=== PATIENT | male | born 1965 | race American Indian/Alaskan Native ===

== ENCOUNTER 2016-07-15 20:12 | Emergency (ER) | payer MEDICAID ==
[2016-07-15 20:13] VITALS: BMI 35.9
[2016-07-15 21:01] VITALS: BP 107/104; O2SAT 98
[2016-07-15 21:14] LABS: URINE BILIRUBIN NEGATIVE (NEGATIVE); URINE BLOOD SMALL (NEGATIVE); URINE GLUCOSE (UA) NEGATIVE (NEGATIVE); URINE KETONE NEGATIVE (NEGATIVE); URINE LEUKOCYTE ESTERASE NEGATIVE Leu/uL (NEGATIVE); URINE PROTEIN NEGATIVE mg/dL (<30 mg/dL); URINE UROBILINOGEN 0.2 E.U./dL (<1 E.U./dL)
[2016-07-15 21:22] LABS: URINE APPEARANCE CLEAR (CLEAR); URINE COLOR LIGHT YELLOW (YELLOW)
[2016-07-15 21:31] LABS: URINE BACTERIA TRACE (NEG); URINE EPITHELIAL CELLS 0 - 2 /hpf (0-5); URINE RBC 0 - 2 /hpf (0-2); URINE WBC 0 - 2 /hpf (0-6)
--- NOTE | 2016-07-15 23:02 | US ---
EXAM: US Scrotum CLINICAL HISTORY: 51 years old, male; Pain; Scrotum pain; Additional info: Left pain TECHNIQUE: Real-time ultrasound of the scrotum with color Doppler and image documentation. COMPARISON: No relevant prior studies available. FINDINGS: Right testicle: 4.5 x 2.1 x 2.6 cm. No mass. No torsion. Left testicle: 4.3 x 1.8 x 4.0 cm. No mass. No torsion. Epididymides: Unremarkable as visualized. Symmetric appearance. Scrotum: Bilateral hydrocele with evidence of complexity. IMPRESSION: Bilateral hydrocele with evidence of complexity. Correlate clinically.
[2016-07-15] MEDS ORDERED: Oxycodone/Acetaminophen 5/325 mg Tab PO STA (23:04)
--- NOTE | 2016-07-15 23:04 | US ---
EXAM: US Retroperitoneal Limited, Renal CLINICAL HISTORY: 51 years old, male; Pain; Other: Backpain; Additional info: Back pain TECHNIQUE: Real-time ultrasound of the retroperitoneum (limited) with image documentation. COMPARISON: CT - ABD PELVIS W/O PO OR IV CONT 11/05/2015 10:45:54 PM FINDINGS: Right kidney: 12.3 cm. No stones or mass imaged by ultrasound criteria. No hydronephrosis. Left kidney: 10.5 cm. No stones or mass image by ultrasound criteria. No hydronephrosis. IMPRESSION: No acute sonographic abnormality. Correlate clinically. Followup as warranted.
[2016-07-15 23:09] VITALS: PULSE 80; RESP 16; TEMP 98
--- NOTE | 2016-07-15 23:26 | ED PDOC ---
Arrival/HPI - General Chief Complaint: Male Genitourinary Time Seen by Provider: 07/15/16 20:33 Historian: Patient - History of Present Illness Narrative History of Present Illness (Text): 07/15/16 23:21 Candido Coburn is a 51 year old male, with a history of hypertension, presents to the emergency department for evaluation of 4 day duration of right testicular pain. Patient was evaluated by PMD earlier today for these symptoms, and was advised to present to emergency department for a testicular ultrasound. Denies any swelling, or redness. Denies fever, chills, chest pain, difficulty breathing , nausea, vomiting, diarrhea, urinary symptoms or any other complaints at this time. PMD:Dr. Matthews. Time/Duration: < week (4 days ) Symptom Onset: Gradual Symptom Course: Unchanged Severity Level: Mild Activities at Onset: Light Past Medical History - Provider Review Nursing Documentation Reviewed: Yes - Infectious Disease Hx of Infectious Diseases: None - Tetanus Immunization Tetanus Immunization: Unknown - Cardiac Hx Hypertension: Yes - Pulmonary Hx Respiratory Disorders: No - Neurological Hx Neurological Disorder: No - HEENT Hx HEENT Disorder: No - Renal Hx Renal Disorder: No - Endocrine/Metabolic Hx Endocrine Disorders: No - Hematological/Oncological Hx Blood Disorders: No - Integumentary Hx Dermatological Disorder: No - Musculoskeletal/Rheumatological Hx Musculoskeletal Disorders: No - Gastrointestinal Hx Gastrointestinal Disorders: No - Genitourinary/Gynecological Hx Genitourinary Disorders: No - Psychiatric Hx Depression: No Hx Emotional Abuse: No Hx Physical Abuse: No Hx Substance Use: No - Surgical History Other/Comment: lower back surgery last year. - Anesthesia Hx Anesthesia: No Hx Anesthesia Reactions: No Hx Malignant Hyperthermia: No - Suicidal Assessment Feels Threatened In Home Enviroment: No Family/Social History - Physician Review Nursing Documentation Reviewed: Yes Family/Social History: No Known Family HX Smoking Status: Never Smoked Hx Alcohol Use: No Hx Substance Use: No Hx Substance Use Treatment: No Allergies/Home Meds Allergies/Adverse Reactions: Allergies seafood Allergy (Uncoded 11/05/15 18:38) ANAPHYLAXIS Home Medications: Home Meds Medication Instructions Recorded Confirmed Labetalol [Trandate] 100 mg PO BID 11/05/15 11/05/15 Review of Systems - Physician Review All systems were reviewed & negative as marked: Yes - Review of Systems Constitutional: Normal. absent: Fatigue, Fevers Respiratory: Normal. absent: SOB, Cough, Sputum Cardiovascular: Normal. absent: Chest Pain Gastrointestinal: Normal. absent: Abdominal Pain, Diarrhea, Nausea, Vomiting Genitourinary Male: Other (right testicular pain ) Neurological: Normal. absent: Headache, Dizziness Psychiatric: Normal Physical Exam Vital Signs Reviewed: Yes Vital Signs Temp Pulse Resp BP Pulse Ox 07/15/16 23:34 80 16 98 07/15/16 23:09 98.0 F 80 16 98 07/15/16 21:00 97.7 F 76 19 107/104 H 98 Temperature: Afebrile Blood Pressure: Hypertensive Pulse: Regular Respiratory Rate: Normal Appearance: Positive for: Well-Appearing, Non-Toxic, Comfortable Pain Distress: None Mental Status: Positive for: Alert and Oriented X 3 - Systems Exam Head: Present: Atraumatic, Normocephalic Pupils: Present: PERRL Conjunctiva: Present: Normal Respiratory/Chest: Present: Clear to Auscultation, Good Air Exchange. No: Respiratory Distress, Accessory Muscle Use Cardiovascular: Present: Regular Rate and Rhythm, Normal S1, S2. No: Murmurs Abdomen: Present: Normal Bowel Sounds. No: Tenderness, Distention, Peritoneal Signs Genitourinary Male: No: Testicle Tenderness, Masses, Erythema, Hernias, Testicle Swelling Upper Extremity: Present: Normal Inspection. No: Cyanosis, Edema Lower Extremity: Present: Normal Inspection. No: Edema Neurological: Present: GCS=15, CN II-XII Intact, Speech Normal Skin: Present: Warm, Dry, Normal Color. No: Rashes Psychiatric: Present: Alert, Oriented x 3, Normal Insight, Normal Concentration Medical Decision Making ED Course and Treatment: 07/15/16 23:30 Impression: a 51 year old male who presents to the emergency department for evaluation of testicular pain 4 days. Sent by PMD for an ultrasound. Plan: -- Percocet -- Renal US -- Testes US -- Urinalysis Progress Notes: 07/15/16 23:31 EXAM: US Scrotum FINDINGS: Right testicle: 4.5 x 2.1 x 2.6 cm. No mass. No torsion. Left testicle: 4.3 x 1.8 x 4.0 cm. No mass. No torsion. Epididymides: Unremarkable as visualized. Symmetric appearance. Scrotum: Bilateral hydrocele with evidence of complexity. IMPRESSION: Bilateral hydrocele with evidence of complexity. Correlate clinically EXAM: US Retroperitoneal Limited, Renal FINDINGS: Right kidney: 12.3 cm. No stones or mass imaged by ultrasound criteria. No hydronephrosis. Left kidney: 10.5 cm. No stones or mass image by ultrasound criteria. No hydronephrosis. IMPRESSION: No acute sonographic abnormality. Correlate clinically. Followup as warranted. On reevaluation patient states that pain has improved markedly. I have discussed the results and plan with the patient, who expresses understanding. Patient given the opportunity to ask question, all questions were answered and there is agreement with the plan to discharge the patient home. Patient is stable for discharge. Patient was instructed to follow up with physician/clinic in 1-2 days or return if symptoms persist/worsen or new concerning symptoms arise. - Lab Interpretations Lab Results: Lab Results 07/15/16 21:00: Urine Color Light yellow, Urine Appearance Clear, Urine pH 6.0, Ur Specific Mcleod 1.010, Urine Protein Negative, Urine Glucose (UA) Negative, Urine Ketones Negative, Urine Blood Small H, Urine Nitrate Negative, Urine Bilirubin Negative, Urine Urobilinogen 0.2, Ur Leukocyte Esterase Negative, Urine RBC 0 - 2, Urine WBC 0 - 2, Ur Epithelial Cells 0 - 2, Urine Bacteria Trace - RAD Interpretation Radiology Orders: 07/15/16 20:59 TESTES DUPLEX COMPLETE [US] Stat 07/15/16 21:33 RENAL [US] Stat Outside Sales: Radiologist - Medication Orders Current Medication Orders: Discontinued Medications Oxycodone/Acetaminophen (Percocet 5/325 Mg Tab) 1 tab PO STAT STA Stop: 07/15/16 23:05 Last Admin: 07/15/16 23:12 Dose: 1 TAB - Scribe Statement The provider has reviewed the documentation as recorded by the Sienna Gutierrez Provider Attestation: All medical record entries made by the Sienna were at my direction and personally dictated by me. I have reviewed the chart and agree that the record accurately reflects my personal performance of the history, physical exam, medical decision making, and the department course for this patient. I have also personally directed, reviewed, and agree with the discharge instructions and disposition. Disposition/Present on Arrival - Present on Arrival Any Indicators Present on Arrival: No History of DVT/PE: No History of Uncontrolled Diabetes: No Urinary Catheter: No History of Decub. Ulcer: No History Surgical Site Infection Following: None - Disposition Have Diagnosis and Disposition been Completed?: Yes Diagnosis: Hydrocele in adult Disposition: HOME/ ROUTINE Disposition Time: 23:35 Condition: GOOD Discharge Instructions (ExitCare): Hydrocele (ED) Additional Instructions: follow up with your urologist Referrals: Benny Botello MD [Staff Provider] - Follow up with primary Arianne Armas APN [Primary Care Provider] - Follow up with primary
== END 2016-07-15 23:34 | disposition home or self-care (01) ==
LOC: ED 20:12
DX: N43.3 Hydrocele, unspecified (principal)

== ENCOUNTER 2018-02-10 19:52 | Emergency (ER) | payer BC, MEDICARE ==
[2018-02-10 20:16] VITALS: BMI 36.6
[2018-02-10 20:20] VITALS: TEMP 98.2
--- NOTE | 2018-02-10 20:34 | ED PDOC ---
Arrival/HPI - General Chief Complaint: Shortness Of Breath Time Seen by Provider: 02/10/18 20:04 Historian: Patient - History of Present Illness Narrative History of Present Illness (Text): 02/10/18 20:34 Candido Coburn is a 52 year old male, whose past medical history includes hypertension, who presents to the Emergency department complaining of throat irritation/tightness since waking up at 15:30 today. Patient states he has a s eafood allergy, but denies any recent exposure to seafood. Patient denies any shortness of breath, wheezing, facial swelling, rash, chest pain, abdominal pain, vomiting, or any other complaints. Symptom Onset: Gradual Symptom Course: Unchanged Activities at Onset: Light Context: Home Past Medical History - Provider Review Nursing Documentation Reviewed: Yes - Infectious Disease Hx of Infectious Diseases: None - Tetanus Immunization Tetanus Immunization: Unknown - Cardiac Hx Hypertension: Yes - Pulmonary Hx Respiratory Disorders: No - Neurological Hx Neurological Disorder: No - HEENT Hx HEENT Disorder: No - Renal Hx Renal Disorder: No - Endocrine/Metabolic Hx Endocrine Disorders: No - Hematological/Oncological Hx Blood Disorders: No - Integumentary Hx Dermatological Disorder: No - Musculoskeletal/Rheumatological Hx Musculoskeletal Disorders: No - Gastrointestinal Hx Gastrointestinal Disorders: No - Genitourinary/Gynecological Hx Genitourinary Disorders: No - Psychiatric Hx Depression: No Hx Emotional Abuse: No Hx Physical Abuse: No Hx Substance Use: No - Surgical History Other/Comment: lower back surgery last year. - Anesthesia Hx Anesthesia: No Hx Anesthesia Reactions: No Hx Malignant Hyperthermia: No - Suicidal Assessment Feels Threatened In Home Enviroment: No Family/Social History - Physician Review Nursing Documentation Reviewed: Yes Family/Social History: Unknown Family HX Smoking Status: Never Smoked Hx Alcohol Use: No Hx Substance Use: No Hx Substance Use Treatment: No Allergies/Home Meds Allergies/Adverse Reactions: Allergies shellfish derived Allergy (Verified 02/10/18 20:04) ANAPHYLAXIS seafood Allergy (Uncoded 11/05/15 18:38) ANAPHYLAXIS Home Medications: Home Meds Medication Instructions Recorded Confirmed Labetalol [Trandate] 100 mg PO BID 11/05/15 02/10/18 Review of Systems - Physician Review All systems were reviewed & negative as marked: Yes - Review of Systems Constitutional: Normal. absent: Fevers Eyes: Normal ENT: Sore Throat (+throat irritation/tightness) Respiratory: Normal. absent: SOB, Cough Cardiovascular: Normal. absent: Chest Pain Gastrointestinal: Normal. absent: Abdominal Pain, Diarrhea, Nausea, Vomiting Genitourinary Male: Normal. absent: Dysuria, Frequency, Hematuria, Urinary Output Changes Musculoskeletal: Normal. absent: Back Pain, Neck Pain Skin: Normal. absent: Rash Neurological: Normal. absent: Headache, Dizziness Endocrine: Normal Hemo/Lymphatic: Normal Psychiatric: Normal Physical Exam Vital Signs Reviewed: Yes Vital Signs Temp Pulse Resp BP Pulse Ox 02/10/18 20:16 98.2 F 77 18 147/90 98 Temperature: Afebrile Blood Pressure: Normal Pulse: Regular Respiratory Rate: Normal Appearance: Positive for: Well-Appearing, Non-Toxic, Comfortable Pain Distress: None Mental Status: Positive for: Alert and Oriented X 3 - Systems Exam Head: Present: Atraumatic, Normocephalic Pupils: Present: PERRL Extroacular Muscles: Present: EOMI Conjunctiva: Present: Normal Ears: Present: Normal, NORMAL TM, Normal Canal. No: TM Bulging, Fluid, TM Perf Mouth: Present: Moist Mucous Membranes Pharnyx: Present: Other (Edematous/gelatinous uvula). No: ERYTHEMA, EXUDATE, TONSILS ENLARGED, Peritonsilar Swelling, Muffled/Hoarse Voice, Strider, Soft Palate/Uvular Edema Nose (External): Present: Atraumatic Nose (Internal): Present: Normal Inspection Neck: Present: Normal Range of Motion. No: Meningeal Signs, MIDLINE TENDERNESS, Paraspinal Tenderness Respiratory/Chest: Present: Clear to Auscultation, Good Air Exchange. No: Respiratory Distress, Accessory Muscle Use Cardiovascular: Present: Regular Rate and Rhythm, Normal S1, S2. No: Murmurs Abdomen: No: Tenderness, Distention, Peritoneal Signs Back: Present: Normal Inspection. No: CVA Tenderness, Midline Tenderness, Paraspinal Tenderness Upper Extremity: Present: Normal Inspection. No: Cyanosis, Edema Lower Extremity: Present: Normal Inspection. No: Edema Neurological: Present: GCS=15, CN II-XII Intact, Speech Normal, Motor Func Grossly Intact, Normal Sensory Function Skin: Present: Warm, Dry, Normal Color. No: Rashes Psychiatric: Present: Alert, Oriented x 3, Normal Insight, Normal Concentration Medical Decision Making ED Course and Treatment: 02/10/18 20:34 Impression: 52 year old male complaining of throat irritation/tightness. Plan: -- Benadryl -- Solu-medro -- Reassess and disposition Progress Notes: Reviewed EKG, NSR at [address]-segment elevations or depressions, no T-wave inversions, normal intervals. 02/11/18 01:10 On re-evaluation, patient feels better and is in no acute distress. Patient in agreement with plan to be discharged home. Patient is stable for discharge. Patient was instructed to follow up with physician or return if symptoms worsen or new concerning symptoms arise. - EKG Interpretation Interpreted by ED Physician: Yes Type: 12 lead EKG - Scribe Statement The provider has reviewed the documentation as recorded by the Sienna Mast Provider Scribe Attestation: All medical record entries made by the Scribe were at my direction and personally dictated by me. I have reviewed the chart and agree that the record accurately reflects my personal performance of the history, physical exam, medical decision making, and the department course for this patient. I have also personally directed, reviewed, and agree with the discharge instructions and disposition. Disposition/Present on Arrival - Present on Arrival Any Indicators Present on Arrival: No History of DVT/PE: No History of Uncontrolled Diabetes: No Urinary Catheter: No History of Decub. Ulcer: No History Surgical Site Infection Following: None - Disposition Have Diagnosis and Disposition been Completed?: Yes Diagnosis: Allergic reaction Disposition: HOME/ ROUTINE Disposition Time: 01:07 Patient Plan: Discharge Patient Problems: Current Active Problems Problem Status Onset Allergic reaction Acute Condition: GOOD Additional Instructions: Take meds as prescribed/follow up with your doctor/any worsening symptoms return to the emergency room Prescriptions: DiphenhydrAMINE [Benadryl] 50 mg PO Q6 PRN #24 cap PRN Reason: Itching / Pruritus predniSONE [Prednisone] 60 mg PO DAILY #15 tab Forms: [employer] (Scottish)
[2018-02-10] MEDS ORDERED: DiphenhydrAMINE 50 mg/ml Inj IVP ONE (20:37)
[2018-02-11 00:41] VITALS: BP 146/96; PULSE 66; RESP 17; O2SAT 100
--- NOTE | 2018-02-11 20:24 | CARD ---
APPROVED REPORT Date of service: 02/10/2018 EKG Measurement Heart [id number] <Conclusion> Normal sinus rhythm Normal ECG
== END 2018-02-11 01:19 | disposition home or self-care (01) ==
LOC: ED 19:52
DX: T78.49XA Other allergy, initial encounter (principal); X58.XXXA Exposure to other specified factors, initial encounter; I10 Essential (primary) hypertension
CPT/HCPCS: 93005; 96374; 96375; 99284; J1200; J2930